=== PATIENT | male | born 1995 | race Caucasian/White ===

== ENCOUNTER 2023-09-17 18:03 | Emergency (ER) | payer SELFPAY ==
[~2023-09-17] VITALS: Ht 165.1 cm; Wt 53.5 kg
[2023-09-17 18:15] VITALS: BP 132/80; PULSE 89; RESP 16; TEMP 98; O2SAT 99
[2023-09-17] MEDS ORDERED: ACET-10509 PO (19:42)
[2023-09-17] MEDS ORDERED: IBUP-1842 PO (19:42)
== END 2023-09-17 20:06 | disposition home or self-care (01) ==
LOC: MED 18:03
DX: S50.12XA Contusion of left forearm, initial encounter (principal); Z79.899 Other long term (current) drug therapy; X58.XXXA Exposure to other specified factors, initial encounter; Y93.89 Activity, other specified; Y92.89 Other specified places as the place of occurrence of the external cause; Y99.8 Other external cause status
CPT/HCPCS: 73090; 99283